=== PATIENT | male | born 1950 | race African-American/Black ===

== ENCOUNTER 2018-01-08 06:22 | Inpatient (IN) ==
[~2018-01-08 06:22] MED LIST: VANCOMYCIN INJ 1,000 MG in SODIUM CHLORIDE 0.9% 250 ML IV ONE; ceFAZolin 1,000 MG in SYRINGE 1 EACH IV ONE
[2018-01-08] MEDS ORDERED: DIAZEPAM 5 MG TABLET PO ONE (07:00)
[2018-01-08] MEDS ORDERED: ALBUTEROL 2.5 MG/3 ML NEB RESP TX ONE (07:00)
[2018-01-08] MEDS ORDERED: FAMOTIDINE 20 MG TABLET PO ONE (07:00)
[2018-01-08] MEDS ORDERED: IPRATROPIUM 500 MCG/2.5 ML NEB RESP TX ONE (07:00)
[2018-01-08] MEDS ORDERED: TRANEXAMIC ACID 1,000 MG/10 ML VIAL IV ONE (08:23)
[2018-01-08] MEDS ORDERED: LACTATED RINGERS 1,000 ML IV SCH (08:30)
[2018-01-08] MEDS ORDERED: ceFAZolin 1,000 MG VIAL ONE (08:38)
[2018-01-08] MEDS ORDERED: VANCOMYCIN 1,000 MG VIAL ONE (08:38)
[2018-01-08] MEDS ORDERED: BACITRACIN OINT 0.9 GM PACK TOP ONE (08:52)
[2018-01-08] MEDS ORDERED: DIAZEPAM 5 MG TABLET ONE (09:41)
[2018-01-08] MEDS ORDERED: FAMOTIDINE 20 MG TABLET ONE (09:41)
[2018-01-08] MEDS ORDERED: ROPIVACAINE 0.5% 30 ML VIAL ONE (10:26)
[2018-01-08] MEDS ORDERED: diphenhydrAMINE CAP 25 MG CAPSULE PO PRN (11:50)
[2018-01-08] MEDS ORDERED: ONDANSETRON 4 MG/2 ML VIAL IV PRN (11:50)
[2018-01-08] MEDS ORDERED: MORPHINE 2 MG/1 ML SYRINGE IV PRN ×2 (11:50)
[2018-01-08] MEDS ORDERED: oxyCODONE IR 5 MG TABLET PO PRN ×2 (11:50)
[2018-01-08] MEDS ORDERED: ZALEPLON 5 MG CAPSULE PO PRN (11:50)
[2018-01-08] MEDS ORDERED: MAGNESIUM HYDROXIDE SUSP 30 ML UDCUP PO PRN (11:50)
[2018-01-08] MEDS ORDERED: BENZONATATE 100 MG CAPSULE PO SCH (12:00)
[2018-01-08] MEDS ORDERED: fentaNYL 100 MCG/2 ML VIAL ONE (12:26)
[2018-01-08] MEDS ORDERED: ONDANSETRON 4 MG/2 ML VIAL ONE (12:27)
[2018-01-08] MEDS ORDERED: PROPOFOL 200 MG/20 ML VIAL IV ONE (12:27)
[2018-01-08] MEDS ORDERED: SEVOFLURANE 1 UNIT/15 MINUTE INH ONE (12:27)
[2018-01-08] MEDS ORDERED: GLYCOPYRROLATE 0.4 MG/2 ML VIAL ONE (12:28)
[2018-01-08] MEDS ORDERED: ACETAMINOPHEN 1,000 MG/100 ML VIAL IV ONE (12:28)
[2018-01-08] MEDS ORDERED: PHENYLEPHRINE 1 MG/10 ML SYRINGE IV ONE (12:28)
[2018-01-08] MEDS ORDERED: NEOSTIGMINE 10 MG/10 ML VIAL ONE (12:28)
[2018-01-08] MEDS ORDERED: ROCURONIUM 100 MG/10 ML VIAL IV ONE (12:28)
[2018-01-08] MEDS: LACTATED RINGERS 1,000 ML IV SCH (12:32)
[2018-01-08] MEDS: ceFAZolin 1,000 MG in SYRINGE 1 EACH IV SCH ×2 (16:19→23:20)
[2018-01-08] MEDS: KETOROLAC 30 MG/1 ML VIAL IV SCH ×2 (16:23→21:42)
[2018-01-08] MEDS: ACETAMINOPHEN 500 MG TABLET PO SCH ×2 (16:24→21:41)
[2018-01-08] MEDS: GABAPENTIN 300 MG CAPSULE PO SCH (21:41)
[2018-01-08] MEDS: DOCUSATE SODIUM 100 MG CAPSULE PO SCH (21:41)
[2018-01-09] MEDS: ACETAMINOPHEN 500 MG TABLET PO SCH ×2 (03:10→10:18)
[2018-01-09] MEDS: KETOROLAC 30 MG/1 ML VIAL IV SCH ×2 (03:10→10:21)
[2018-01-09] MEDS: LACTATED RINGERS 1,000 ML IV SCH (03:10)
[2018-01-09 04:53] LABS: Basophils # 0.1 10*3/uL (0.0-0.2); Basophils % 0.7 % (0.0-0.8); Eosinophils # 0.9 10*3/uL (0.0-0.87); Eosinophils % 13.2 % (0.00-10.9); Hematocrit 30.9 VOL% (42.0-52.0); Immature Granulocytes % 0.1 %; Immature Granulocytes Absolute 0.01 #; Lymphocytes # 1.3 10*3/uL (1.4-4.0); Lymphocytes % 18.5 % (21.2-54.2); Mean Corpuscular HGB Conc 32.4 GM/DL (32-36); Mean Corpuscular Hemoglobin 28 PG (27-34); Mean Corpuscular Volume 87.3 FL (87-102); Mean Platelet Volume 10.2 FL (9.6-12.0); Monocytes # 0.9 10*3/uL (0.11-0.8); Monocytes % 13.4 % (1.7-12.7); Neutrophils # 3.8 10*3/uL (1.4-7.4); Neutrophils % 54.1 % (38.7-73.9); Platelet Count 176 T/CUMM (130-400); Red Blood Count 3.54 MC/CUMM (3.8-5.5); Red Cell Distribution Width 13.4 % (9.3-17.3)
[2018-01-09 05:19] LABS: Eosinophils 16 % (0-10); Lymphocytes 24 % (20-55); Platelet Estimate Normal; Segmented Neutrophils 48 % (50-85); Total Cells Counted 100
[2018-01-09 05:20] LABS: Giant Platelets Few; Hypochromasia 1+; Ovalocytes Slight
[2018-01-09 05:22] LABS: Calcium 8.2 MG/DL (8.5-10.1); Osmolality,Calculated 279.3 MOS/KG (273-304); Potassium 3.3 MMOL/L (3.5-5.1)
[2018-01-09] MEDS: FONDAPARINUX 2.5 MG/0.5 ML SYRINGE SUBCUT SCH (05:55)
[2018-01-09] MEDS ORDERED: KETOROLAC 30 MG/1 ML VIAL ONE (10:15)
[2018-01-09] MEDS: POTASSIUM CHLORIDE 20 MEQ TABLET PO SCH ×2 (10:17→21:34)
[2018-01-09] MEDS: amLODIPine 5 MG TABLET PO SCH (10:18)
[2018-01-09] MEDS: DOCUSATE SODIUM 100 MG CAPSULE PO SCH ×2 (10:18→21:34)
[2018-01-09] MEDS: oxyCODONE/ACETAMINOPHEN 5-325 MG TABLET PO PRN ×3 (15:24→21:34)
[2018-01-09] MEDS: CELECOXIB 200 MG CAPSULE PO SCH (17:17)
[2018-01-09] MEDS: GABAPENTIN 300 MG CAPSULE PO SCH (21:34)
[2018-01-10 05:15] LABS: Basophils % 0.4 % (0.0-0.8); Eosinophils # 0.8 10*3/uL (0.0-0.87); Eosinophils % 11.9 % (0.00-10.9); Hematocrit 28.2 VOL% (42.0-52.0); Hemoglobin 9.1 GM/DL (14.0-18.0); Immature Granulocytes % 0.3 %; Immature Granulocytes Absolute 0.02 #; Lymphocytes # 1.2 10*3/uL (1.4-4.0); Lymphocytes % 17.2 % (21.2-54.2); Mean Corpuscular HGB Conc 32.3 GM/DL (32-36); Mean Corpuscular Hemoglobin 29 PG (27-34); Mean Corpuscular Volume 88.7 FL (87-102); Mean Platelet Volume 10.6 FL (9.6-12.0); Monocytes # 0.6 10*3/uL (0.11-0.8); Monocytes % 8.7 % (1.7-12.7); Neutrophils # 4.2 10*3/uL (1.4-7.4); Neutrophils % 61.5 % (38.7-73.9); Platelet Count 164 T/CUMM (130-400); Red Blood Count 3.18 MC/CUMM (3.8-5.5); Red Cell Distribution Width 13.5 % (9.3-17.3); White Blood Count 6.8 T/CUMM (4-12)
[2018-01-10 05:38] LABS: Eosinophils 11 % (0-10); Giant Platelets Few; Hypochromasia 1+; Lymphocytes 22 % (20-55); Ovalocytes Slight; Platelet Estimate Normal; Segmented Neutrophils 59 % (50-85); Total Cells Counted 100
[2018-01-10] MEDS: FONDAPARINUX 2.5 MG/0.5 ML SYRINGE SUBCUT SCH (06:05)
[2018-01-10] MEDS: CELECOXIB 200 MG CAPSULE PO SCH (09:21)
[2018-01-10] MEDS: oxyCODONE/ACETAMINOPHEN 5-325 MG TABLET PO PRN ×2 (09:21→16:40)
[2018-01-10] MEDS: DOCUSATE SODIUM 100 MG CAPSULE PO SCH ×2 (09:21→21:05)
[2018-01-10] MEDS: amLODIPine 5 MG TABLET PO SCH (09:21)
[2018-01-10] MEDS: POTASSIUM CHLORIDE 20 MEQ TABLET PO SCH (09:22)
[2018-01-10] MEDS: GABAPENTIN 300 MG CAPSULE PO SCH (21:05)
[2018-01-11] MEDS: FONDAPARINUX 2.5 MG/0.5 ML SYRINGE SUBCUT SCH (06:30)
[2018-01-11] MEDS: oxyCODONE/ACETAMINOPHEN 5-325 MG TABLET PO PRN (10:32)
[2018-01-11] MEDS: DOCUSATE SODIUM 100 MG CAPSULE PO SCH (10:32)
[2018-01-11] MEDS: amLODIPine 5 MG TABLET PO SCH (10:32)
[2018-01-11] MEDS: CELECOXIB 200 MG CAPSULE PO SCH (10:33)
[2018-01-11 11:32] VITALS: BP 153/72
[2018-01-11] MEDS ORDERED: MORPHINE 4 MG/1 ML VIAL IV PRN ×2 (11:56)
== END 2018-01-11 15:15 | disposition swing bed (61) | DRG 470 ==
LOC: N.OR 06:22 → N.SDSINP 06:26 → N.3E 13:17
PROVIDERS: ADMIT Orthopaedic Surgery; ATTEND Orthopaedic Surgery

== ENCOUNTER 2018-08-13 05:19 | Inpatient (IN) ==
[2018-08-13] MEDS ORDERED: methylPREDNISolone SOD SUC 125 MG/2 ML VIAL IV STA (06:11)
[2018-08-13] MEDS ORDERED: ALBUTEROL NEB SOLN 5 MG/ML 20 ML/BOTTLE CONT NEB STA (06:11)
[2018-08-13 06:24] LABS: Eosinophils % 34.2 % (0.00-10.9)
[2018-08-13 06:28] LABS: Basophils # 0.1 10*3/uL (0.0-0.2); Eosinophils # 2.6 10*3/uL (0.0-0.87); Hematocrit 36.8 VOL% (42.0-52.0); Hemoglobin 11.8 GM/DL (14.0-18.0); Immature Granulocytes % 0.3 %; Immature Granulocytes Absolute 0.02 #; Lymphocytes # 1.4 10*3/uL (1.4-4.0); Lymphocytes % 17.8 % (21.2-54.2); Mean Corpuscular HGB Conc 32.1 GM/DL (32-36); Mean Corpuscular Hemoglobin 29 PG (27-34); Mean Corpuscular Volume 89.5 FL (87-102); Mean Platelet Volume 10.5 FL (9.6-12.0); Monocytes # 0.6 10*3/uL (0.11-0.8); Monocytes % 7.5 % (1.7-12.7); Neutrophils % 39.2 % (38.7-73.9); Platelet Count 237 T/CUMM (130-400); Red Blood Count 4.11 MC/CUMM (3.8-5.5); Red Cell Distribution Width 12.4 % (9.3-17.3); White Blood Count 7.7 T/CUMM (4-12)
[2018-08-13 06:33] LABS: PT Patient Result 10.9 SECS; Partial Thromboplastin Time 25.9 SECS (0-40)
[2018-08-13 06:40] LABS: Eosinophils 24 % (0-10); Lymphocytes 20 % (20-55); Platelet Estimate Adequate; Segmented Neutrophils 47 % (50-85); Total Cells Counted 100
[2018-08-13 06:41] LABS: Hypochromasia 1+; Ovalocytes Slight
[2018-08-13 06:46] LABS: Bilirubin,Total 0.6 MG/DL (0.2-1.0); Calcium 9.1 MG/DL (8.5-10.1); Osmolality,Calculated 276.5 MOS/KG (273-304); Potassium 3.9 MMOL/L (3.5-5.1); Total Protein 7.7 G/DL (6.4-8.3)
[2018-08-13] MEDS ORDERED: LEVOFLOXACIN INJ 500 MG in PREMIX 1 EACH IV STA (06:46)
[2018-08-13] MEDS ORDERED: ACETAMINOPHEN 325 MG TABLET PO PRN (08:20)
[2018-08-13] MEDS ORDERED: ONDANSETRON 4 MG/2 ML VIAL IV PRN (08:20)
[2018-08-13 10:50] LABS: Apearance,Urine Slightly Hazy (Clear); Bacteria,Urine Occasional /HPF (Few); Bilirubin,Urine Negative (Negative); Blood, Urine Negative (Negative); Glucose,Urine (UA) >=500 mg/dL (Negative); Ketones,Urine 20 mg/dL (Negative); Mucus,Urine Occasional /LPF (Occasional); Nitrite,Urine Negative (Negative); Protein,Urine Negative; RBC,Urine 9 /HPF (0-4); Squamous Epithelial Cell,Urine Occasional /HPF (0-10); Urine Color Yellow (Yellow); Urine Urobilinogen < 2.0 EU/DL (0.2-1.0); WBC,Urine 124 /HPF (0-6)
[2018-08-13 10:55] LABS: Barbiturates Screen,Urine Negative (Negative); Benzodiazepines Screen,Urine Negative (Negative); Cannabinoid Screen,Urine Negative (Negative); Opiate Screen,Urine Negative (Negative); Phencyclidine Screen,Urine Negative (Negative)
[2018-08-13] MEDS ORDERED: THIAMINE INJ 100 MG, FOLIC ACID INJ 1 MG, MULTIVITAMIN INJ 10 ML in SODIUM CHLORIDE 0.9... IV SCH (11:00)
[2018-08-13] MEDS ORDERED: BENZONATATE 100 MG CAPSULE PO PRN (13:39)
[2018-08-13] MEDS ORDERED: ALBUTEROL 2.5 MG/3 ML NEB RESP TX PRN (13:39)
[2018-08-13] MEDS ORDERED: chlordiazePOXIDE 10 MG CAPSULE PO PRN (13:46)
[2018-08-13] MEDS: ALBUTEROL/IPRATROPIUM 3 ML NEB RESP TX SCH ×2 (13:47→19:28)
[2018-08-13] MEDS ORDERED: SODIUM CHLORIDE 0.9% 1,000 ML IV SCH (14:00)
[2018-08-13] MEDS ORDERED: IPRATROPIUM 500 MCG/2.5 ML NEB RESP TX SCH (15:00)
[2018-08-13] MEDS: cefTRIAXone 1,000 MG in SYRINGE 1 EACH IV SCH (15:02)
[2018-08-13] MEDS ORDERED: IPRATROPIUM/ALBUTEROL INHALER INH SCH (17:00)
[2018-08-13] MEDS: oxyCODONE/ACETAMINOPHEN 5-325 MG TABLET PO SCH (20:42)
[2018-08-13] MEDS: GABAPENTIN 300 MG CAPSULE PO SCH (20:43)
[2018-08-13] MEDS: methylPREDNISolone SOD SUC 40 MG/1 ML VIAL IV SCH (20:43)
[2018-08-14] MEDS ORDERED: 1: SODIUM CHLORIDE 0.9% 1,000 ML 2: THIAMINE INJ 100 MG, FOLIC ACID INJ 1 MG, MULTIVITA IV SCH (00:18)
[2018-08-14] MEDS: ALBUTEROL/IPRATROPIUM 3 ML NEB RESP TX SCH ×4 (01:18→19:50)
[2018-08-14 05:53] LABS: Hematocrit 34.9 VOL% (42.0-52.0); Hemoglobin 11.2 GM/DL (14.0-18.0); Immature Granulocytes % 0.5 %; Immature Granulocytes Absolute 0.04 #; Lymphocytes % 11.6 % (21.2-54.2); Mean Corpuscular HGB Conc 32.1 GM/DL (32-36); Mean Corpuscular Hemoglobin 29 PG (27-34); Mean Corpuscular Volume 89.5 FL (87-102); Mean Platelet Volume 10.7 FL (9.6-12.0); Monocytes # 0.3 10*3/uL (0.11-0.8); Monocytes % 3.8 % (1.7-12.7); Neutrophils # 7.2 10*3/uL (1.4-7.4); Neutrophils % 84.1 % (38.7-73.9); Platelet Count 236 T/CUMM (130-400); Red Cell Distribution Width 12.1 % (9.3-17.3); White Blood Count 8.6 T/CUMM (4-12)
[2018-08-14 07:02] LABS: Calcium 8.8 MG/DL (8.5-10.1); Osmolality,Calculated 280.4 MOS/KG (273-304); Potassium 4.2 MMOL/L (3.5-5.1)
[2018-08-14] MEDS ORDERED: LEVOFLOXACIN INJ 500 MG in PREMIX 1 EACH IV SCH (08:30)
[2018-08-14] MEDS: methylPREDNISolone SOD SUC 40 MG/1 ML VIAL IV SCH ×2 (08:32→21:58)
[2018-08-14] MEDS: amLODIPine 5 MG TABLET PO SCH (08:34)
[2018-08-14] MEDS: GABAPENTIN 300 MG CAPSULE PO SCH ×2 (08:34→21:58)
[2018-08-14] MEDS: ASPIRIN EC 81 MG TABLET PO SCH (08:34)
[2018-08-14] MEDS: oxyCODONE/ACETAMINOPHEN 5-325 MG TABLET PO SCH ×2 (08:34→21:58)
[2018-08-14] MEDS: cefTRIAXone 1,000 MG in SYRINGE 1 EACH IV SCH (08:34)
[2018-08-14] MEDS: MULTIVITAMIN (CENTRUM) TABLET PO SCH (11:37)
[2018-08-14] MEDS: THIAMINE 100 MG TABLET PO SCH (11:37)
[2018-08-14] MEDS: FOLIC ACID 1 MG TABLET PO SCH (11:37)
[2018-08-14] MEDS: SODIUM CHLORIDE 0.9% 1,000 ML IV SCH ×2 (11:37→22:01)
[2018-08-15] MEDS: ALBUTEROL/IPRATROPIUM 3 ML NEB RESP TX SCH ×2 (00:53→08:18)
[2018-08-15 07:34] VITALS: BP 141/73
[2018-08-15] MEDS: cefTRIAXone 1,000 MG in SYRINGE 1 EACH IV SCH (09:39)
[2018-08-15] MEDS: oxyCODONE/ACETAMINOPHEN 5-325 MG TABLET PO SCH (09:40)
[2018-08-15] MEDS: methylPREDNISolone SOD SUC 40 MG/1 ML VIAL IV SCH (09:40)
[2018-08-15] MEDS: GABAPENTIN 300 MG CAPSULE PO SCH (09:41)
[2018-08-15] MEDS: FOLIC ACID 1 MG TABLET PO SCH (09:41)
[2018-08-15] MEDS: amLODIPine 5 MG TABLET PO SCH (09:42)
[2018-08-15] MEDS: MULTIVITAMIN (CENTRUM) TABLET PO SCH (09:42)
[2018-08-15] MEDS: ASPIRIN EC 81 MG TABLET PO SCH (09:42)
[2018-08-15] MEDS: THIAMINE 100 MG TABLET PO SCH (09:44)
[2018-08-15] MEDS ORDERED: INFLUENZA VIRUS VACCINE 0.5 ML SYRINGE IM ONE (11:00)
== END 2018-08-15 11:06 | disposition home health service (06) | DRG 191 ==
LOC: EDUNIT# → EDBD → N.ED 05:19 → N.EDINP 08:20 → N.2E 09:38
PROVIDERS: ADMIT Hospitalist; ATTEND Hospitalist

== ENCOUNTER 2019-02-08 02:16 | Inpatient (IN) ==
[2019-02-08] MEDS ORDERED: ALBUTEROL/IPRATROPIUM 3 ML NEB RESP TX STA (02:32)
[2019-02-08] MEDS ORDERED: methylPREDNISolone SOD SUC 125 MG/2 ML VIAL IV STA (02:32)
[2019-02-08 02:52] LABS: Basophils # 0.1 10*3/uL (0.0-0.2); Basophils % 0.8 % (0.0-0.8); Eosinophils # 2.4 10*3/uL (0.0-0.87); Eosinophils % 33.4 % (0.00-10.9); Hematocrit 37.1 VOL% (42.0-52.0); Hemoglobin 11.7 GM/DL (14.0-18.0); Immature Granulocytes % 0.3 %; Immature Granulocytes Absolute 0.02 #; Lymphocytes # 1.2 10*3/uL (1.4-4.0); Lymphocytes % 17.4 % (21.2-54.2); Mean Corpuscular HGB Conc 31.5 GM/DL (32-36); Mean Corpuscular Volume 87.9 FL (87-102); Mean Platelet Volume 10.5 FL (9.6-12.0); Neutrophils % 41.1 % (38.7-73.9); Platelet Count 209 T/CUMM (130-400); Red Blood Count 4.22 MC/CUMM (3.8-5.5); Red Cell Distribution Width 12.7 % (9.3-17.3); White Blood Count 7.1 T/CUMM (4-12)
[2019-02-08 03:15] LABS: Eosinophils 33 % (0-10); Lymphocytes 24 % (20-55); Segmented Neutrophils 38 % (50-85); Total Cells Counted 100
[2019-02-08 03:19] LABS: Albumin 3.9 G/DL (3.4-5.0); Anisocytosis Slight; Bilirubin,Total 0.4 MG/DL (0.2-1.0); Calcium 8.9 MG/DL (8.5-10.1); Osmolality,Calculated 275.5 MOS/KG (273-304); Total Protein 7.2 G/DL (6.4-8.3)
[2019-02-08 03:23] LABS: Microcytosis Slight
[2019-02-08 03:28] LABS: Platelet Estimate Normal
[2019-02-08] MEDS ORDERED: ONDANSETRON 4 MG/2 ML VIAL IV PRN (05:39)
[2019-02-08] MEDS: SODIUM CHLOR 0.9% KCL 40 MEQ 40 MEQ/1,000 ML BAG IV SCH ×2 (10:20→21:01)
[2019-02-08] MEDS: ENOXAPARIN 40 MG/0.4 ML SYRINGE SUBCUT SCH (10:21)
[2019-02-08] MEDS: ASPIRIN EC 81 MG TABLET PO SCH (10:21)
[2019-02-08] MEDS: methylPREDNISolone SOD SUC 40 MG/1 ML VIAL IV SCH ×3 (10:21→21:01)
[2019-02-08] MEDS: amLODIPine 5 MG TABLET PO SCH (10:21)
[2019-02-08] MEDS: PANTOPRAZOLE 40 MG TABLET PO SCH (10:21)
[2019-02-08] MEDS: FLUTICASONE/SALMETEROL 100-50 DISKUS 14 DOSE INH SCH ×2 (10:22→21:01)
[2019-02-08] MEDS: ACETAMINOPHEN 325 MG TABLET PO PRN (12:29)
[2019-02-08] MEDS: POTASSIUM CHLORIDE 20 MEQ TABLET PO PRN ×4 (13:47→21:00)
[2019-02-09] MEDS: methylPREDNISolone SOD SUC 40 MG/1 ML VIAL IV SCH ×4 (03:52→21:24)
[2019-02-09] MEDS: ALBUTEROL/IPRATROPIUM 3 ML NEB RESP TX PRN ×3 (04:35→12:21)
[2019-02-09 05:18] LABS: Calcium 8.5 MG/DL (8.5-10.1); Osmolality,Calculated 278.5 MOS/KG (273-304)
[2019-02-09] MEDS: SODIUM CHLOR 0.9% KCL 40 MEQ 40 MEQ/1,000 ML BAG IV SCH (06:01)
[2019-02-09] MEDS: ENOXAPARIN 40 MG/0.4 ML SYRINGE SUBCUT SCH (09:41)
[2019-02-09] MEDS: PANTOPRAZOLE 40 MG TABLET PO SCH (09:41)
[2019-02-09] MEDS: FLUTICASONE/SALMETEROL 100-50 DISKUS 14 DOSE INH SCH ×2 (09:41→21:24)
[2019-02-09] MEDS: amLODIPine 5 MG TABLET PO SCH (09:41)
[2019-02-09] MEDS: ASPIRIN EC 81 MG TABLET PO SCH (09:41)
[2019-02-09] MEDS: DORNASE ALFA 2.5 MG/2.5 ML VIAL RESP TX SCH (19:41)
[2019-02-09] MEDS: ALBUTEROL/IPRATROPIUM 3 ML NEB RESP TX SCH (19:41)
[2019-02-09] MEDS: ACETAMINOPHEN 325 MG TABLET PO PRN (21:24)
[2019-02-10] MEDS: ALBUTEROL/IPRATROPIUM 3 ML NEB RESP TX SCH ×3 (00:40→07:42)
[2019-02-10] MEDS: methylPREDNISolone SOD SUC 40 MG/1 ML VIAL IV SCH ×2 (03:24→08:52)
[2019-02-10 06:07] LABS: Basophils % 0.1 % (0.0-0.8); Hematocrit 35.9 VOL% (42.0-52.0); Hemoglobin 11.4 GM/DL (14.0-18.0); Immature Granulocytes % 0.5 %; Immature Granulocytes Absolute 0.06 #; Lymphocytes # 0.7 10*3/uL (1.4-4.0); Lymphocytes % 5.8 % (21.2-54.2); Mean Corpuscular HGB Conc 31.8 GM/DL (32-36); Mean Corpuscular Volume 88.6 FL (87-102); Mean Platelet Volume 11.5 FL (9.6-12.0); Monocytes % 2.6 % (1.7-12.7); Platelet Count 214 T/CUMM (130-400); Red Blood Count 4.05 MC/CUMM (3.8-5.5); Red Cell Distribution Width 12.6 % (9.3-17.3); White Blood Count 11.3 T/CUMM (4-12)
[2019-02-10 06:29] LABS: Calcium 8.8 MG/DL (8.5-10.1); Osmolality,Calculated 279.8 MOS/KG (273-304)
[2019-02-10 07:27] LABS: Hypochromasia 1+; Lymphocytes 7 % (20-55); Microcytosis Slight; Ovalocytes Slight; Platelet Estimate Adequate; Segmented Neutrophils 92 % (50-85); Total Cells Counted 100
[2019-02-10] MEDS: DORNASE ALFA 2.5 MG/2.5 ML VIAL RESP TX SCH (07:48)
[2019-02-10] MEDS: FLUTICASONE/SALMETEROL 100-50 DISKUS 14 DOSE INH SCH (08:52)
[2019-02-10] MEDS: ASPIRIN EC 81 MG TABLET PO SCH (08:52)
[2019-02-10] MEDS: amLODIPine 5 MG TABLET PO SCH (08:52)
[2019-02-10] MEDS: ENOXAPARIN 40 MG/0.4 ML SYRINGE SUBCUT SCH (08:52)
[2019-02-10] MEDS: PANTOPRAZOLE 40 MG TABLET PO SCH (08:52)
[2019-02-10 11:52] VITALS: BP 122/75
== END 2019-02-10 13:08 | disposition home or self-care (01) ==
LOC: EDUNIT# → EDBD → N.ED 02:16 → N.EDINP 05:39 → N.2E 06:09
PROVIDERS: ADMIT Internal Medicine; ATTEND Internal Medicine

== ENCOUNTER 2019-04-13 13:30 | Inpatient (IN) ==
[2019-04-13 15:39] LABS: Basophils # 0.1 10*3/uL (0.0-0.2); Basophils % 0.7 % (0.0-0.8); Eosinophils # 2.5 10*3/uL (0.0-0.87); Eosinophils % 21.9 % (0.00-10.9); Hematocrit 42.6 VOL% (42.0-52.0); Hemoglobin 13.4 GM/DL (14.0-18.0); Immature Granulocytes % 0.4 %; Immature Granulocytes Absolute 0.05 #; Lymphocytes # 1.7 10*3/uL (1.4-4.0); Lymphocytes % 15.2 % (21.2-54.2); Mean Corpuscular HGB Conc 31.5 GM/DL (32-36); Mean Corpuscular Volume 87.8 FL (87-102); Mean Platelet Volume 9.9 FL (9.6-12.0); Monocytes % 8.2 % (1.7-12.7); Neutrophils % 53.6 % (38.7-73.9); Platelet Count 278 T/CUMM (130-400); Red Blood Count 4.85 MC/CUMM (3.8-5.5); Red Cell Distribution Width 13.2 % (9.3-17.3); White Blood Count 11.4 T/CUMM (4-12)
[2019-04-13] MEDS ORDERED: AZITHROMYCIN INJ 500 MG in SODIUM CHLORIDE 0.9% 250 ML IV STA (15:50)
[2019-04-13] MEDS ORDERED: methylPREDNISolone SOD SUC 125 MG/2 ML VIAL IV STA (15:50)
[2019-04-13] MEDS ORDERED: ONDANSETRON ODT 4 MG TABLET PO STA (15:50)
[2019-04-13 15:56] LABS: Albumin 4.8 G/DL (3.4-5.0); Bilirubin,Total 1.2 MG/DL (0.2-1.0); Calcium 10.2 MG/DL (8.5-10.1); Osmolality,Calculated 276.5 MOS/KG (273-304); Total Protein 8.2 G/DL (6.4-8.3)
[2019-04-13 15:58] LABS: Eosinophils 23 % (0-10); Lymphocytes 21 % (20-55); Platelet Estimate Adequate; Segmented Neutrophils 49 % (50-85); Total Cells Counted 100
[2019-04-13] MEDS ORDERED: ALBUTEROL 2.5 MG/3 ML NEB RESP TX SCH (16:00)
[2019-04-13 16:10] LABS: INR 0.9; PT Patient Result 9.9 SECS; Partial Thromboplastin Time 24.3 SECS (0-40)
[2019-04-13 16:16] LABS: Troponin I < 0.015 NG/ML (0.00-0.045)
[2019-04-13] MEDS ORDERED: LORazepam 2 MG/1 ML VIAL IV STA (16:40)
[2019-04-13] MEDS ORDERED: LORazepam 2 MG/1 ML VIAL ONE (16:41)
[2019-04-13] MEDS ORDERED: ETOMIDATE 20 MG/10 ML VIAL IV ONE (17:21)
[2019-04-13] MEDS ORDERED: ROCURONIUM 100 MG/10 ML VIAL IV ONE ×2 (17:23→19:08)
[2019-04-13] MEDS: PROPOFOL 1,000 MG/100 ML BOTTLE IV SCH (17:40)
[2019-04-13 17:58] LABS: ABG Base Excess -1.5 MMOL/L (-2.5-2.5); ABG HCO3 23.2 MMOL/L (20-26); ABG Oxygen Saturation 97.8 % (95-100)
[2019-04-13 18:02] LABS: ABG PCO2 93.5 MM HG (35-48); ABG PH 7.142 (7.35-7.45)
[2019-04-13 18:13] LABS: Barbiturates Screen,Urine Negative (Negative); Benzodiazepines Screen,Urine Negative (Negative); Cannabinoid Screen,Urine Negative (Negative); Opiate Screen,Urine Negative (Negative); Phencyclidine Screen,Urine Negative (Negative)
[2019-04-13 18:14] LABS: Apearance,Urine Slightly Hazy (Clear); Bacteria,Urine Few /HPF (Few); Bilirubin,Urine Negative (Negative); Blood, Urine Moderate mg/dL (Negative); Glucose,Urine (UA) >=500 mg/dL (Negative); Ketones,Urine 5 mg/dL (Negative); Mucus,Urine Occasional /LPF (Occasional); Nitrite,Urine Negative (Negative); Protein,Urine 100 MG/DL; RBC,Urine 6 /HPF (0-4); Squamous Epithelial Cell,Urine Occasional /HPF (0-10); Urine Color Yellow (Yellow); Urine Specific Gravity 1.016 (1.001-1.035); Urine Urobilinogen < 2.0 EU/DL (0.2-1.0); WBC,Urine 14 /HPF (0-6)
[2019-04-13] MEDS ORDERED: ALBUTEROL 2.5 MG/3 ML NEB RESP TX PRN (18:17)
[2019-04-13] MEDS ORDERED: VECURONIUM 10 MG VIAL IV ONE (18:23)
[2019-04-13] MEDS ORDERED: SODIUM CHLORIDE 0.9% 1,000 ML IV SCH (18:30)
[2019-04-13] MEDS ORDERED: ETOMIDATE 20 MG/10 ML VIAL IV STA (19:08)
[2019-04-13] MEDS ORDERED: VECURONIUM 10 MG VIAL IV STA (19:09)
[2019-04-13] MEDS: ENOXAPARIN 40 MG/0.4 ML SYRINGE SUBCUT SCH (19:12)
[2019-04-13] MEDS: methylPREDNISolone SOD SUC 40 MG/1 ML VIAL IV SCH (19:15)
[2019-04-13] MEDS: cefTRIAXone 1,000 MG in SYRINGE 1 EACH IV SCH (19:15)
[2019-04-13] MEDS: ALBUTEROL/IPRATROPIUM 3 ML NEB RESP TX SCH (20:07)
[2019-04-13 21:11] LABS: ABG HCO3 22.8 MMOL/L (20-26); ABG Oxygen Saturation 99.9 % (95-100); ABG PCO2 53.2 MM HG (35-48); ABG PH 7.289 (7.35-7.45); ABG TCO2 22.7 MMOL/L (23-27); Allen Test Positive; Pt O2 Delivery Device Ventilator
[2019-04-13] MEDS: FAMOTIDINE 20 MG/2 ML VIAL IV SCH (21:51)
[2019-04-14] MEDS: ALBUTEROL/IPRATROPIUM 3 ML NEB RESP TX SCH ×4 (00:02→19:11)
[2019-04-14] MEDS: methylPREDNISolone SOD SUC 40 MG/1 ML VIAL IV SCH ×5 (00:36→23:30)
[2019-04-14] MEDS: PROPOFOL 1,000 MG/100 ML BOTTLE IV SCH ×3 (01:39→20:24)
[2019-04-14] MEDS: SODIUM CHLORIDE 0.9% 1,000 ML IV SCH ×2 (03:35→23:31)
[2019-04-14 04:08] LABS: ABG Base Excess 0.3 MMOL/L (-2.5-2.5); ABG HCO3 23.6 MMOL/L (20-26); ABG Oxygen Saturation 99.3 % (95-100); ABG PO2 255.5 MM HG (80-95); ABG TCO2 24.7 MMOL/L (23-27); Allen Test Positive; Pt O2 Delivery Device Ventilator
[2019-04-14 07:00] LABS: Eosinophils % 0.2 % (0.00-10.9); Hematocrit 35.9 VOL% (42.0-52.0); Hemoglobin 11.5 GM/DL (14.0-18.0); Immature Granulocytes % 0.3 %; Immature Granulocytes Absolute 0.02 #; Lymphocytes # 0.9 10*3/uL (1.4-4.0); Lymphocytes % 15.2 % (21.2-54.2); Mean Corpuscular Volume 87.3 FL (87-102); Mean Platelet Volume 10.4 FL (9.6-12.0); Monocytes % 3.4 % (1.7-12.7); Neutrophils % 80.9 % (38.7-73.9); Platelet Count 230 T/CUMM (130-400); Red Blood Count 4.11 MC/CUMM (3.8-5.5); Red Cell Distribution Width 13.1 % (9.3-17.3); White Blood Count 6.1 T/CUMM (4-12)
[2019-04-14 07:39] LABS: Albumin 3.7 G/DL (3.4-5.0); Bilirubin,Total 0.9 MG/DL (0.2-1.0); Calcium 9.1 MG/DL (8.5-10.1); Osmolality,Calculated 282.5 MOS/KG (273-304)
[2019-04-14] MEDS: FAMOTIDINE 20 MG/2 ML VIAL IV SCH ×2 (09:18→20:18)
[2019-04-14] MEDS: cefTRIAXone 1,000 MG in SYRINGE 1 EACH IV SCH (17:32)
[2019-04-14] MEDS: ENOXAPARIN 40 MG/0.4 ML SYRINGE SUBCUT SCH (17:35)
[2019-04-15] MEDS: ALBUTEROL/IPRATROPIUM 3 ML NEB RESP TX SCH ×4 (01:02→18:50)
[2019-04-15 03:16] LABS: Basophils % 0.1 % (0.0-0.8); Hematocrit 36.2 VOL% (42.0-52.0); Hemoglobin 11.6 GM/DL (14.0-18.0); Immature Granulocytes % 0.3 %; Immature Granulocytes Absolute 0.03 #; Lymphocytes # 0.8 10*3/uL (1.4-4.0); Lymphocytes % 7.1 % (21.2-54.2); Mean Corpuscular Volume 86.6 FL (87-102); Mean Platelet Volume 11.3 FL (9.6-12.0); Monocytes % 5.1 % (1.7-12.7); Neutrophils % 87.4 % (38.7-73.9); Platelet Count 212 T/CUMM (130-400); Red Blood Count 4.18 MC/CUMM (3.8-5.5); Red Cell Distribution Width 13.2 % (9.3-17.3); White Blood Count 11.6 T/CUMM (4-12)
[2019-04-15 03:49] LABS: Albumin 3.5 G/DL (3.4-5.0); Bilirubin,Total 0.9 MG/DL (0.2-1.0); Calcium 8.9 MG/DL (8.5-10.1); Osmolality,Calculated 285.3 MOS/KG (273-304)
[2019-04-15 04:03] LABS: ABG Base Excess 3.4 MMOL/L (-2.5-2.5); ABG HCO3 27.5 MMOL/L (20-26); ABG Oxygen Saturation 99.9 % (95-100); ABG PCO2 33.6 MM HG (35-48); ABG TCO2 23.2 MMOL/L (23-27); Allen Test Positive; Pt O2 Delivery Device Ventilator
[2019-04-15] MEDS: methylPREDNISolone SOD SUC 40 MG/1 ML VIAL IV SCH ×3 (05:37→21:10)
[2019-04-15] MEDS: FAMOTIDINE 20 MG/2 ML VIAL IV SCH ×2 (10:09→20:54)
[2019-04-15] MEDS: PROPOFOL 1,000 MG/100 ML BOTTLE IV SCH ×3 (10:16→20:53)
[2019-04-15] MEDS: cefTRIAXone 1,000 MG in SYRINGE 1 EACH IV SCH (18:46)
[2019-04-15] MEDS: ENOXAPARIN 40 MG/0.4 ML SYRINGE SUBCUT SCH (18:46)
[2019-04-15] MEDS: SODIUM CHLORIDE 0.9% 1,000 ML IV SCH ×2 (19:21→20:54)
[2019-04-16] MEDS: ALBUTEROL/IPRATROPIUM 3 ML NEB RESP TX SCH ×4 (00:50→18:50)
[2019-04-16] MEDS: methylPREDNISolone SOD SUC 40 MG/1 ML VIAL IV SCH ×3 (02:33→20:33)
[2019-04-16 04:00] LABS: Basophils % 0.1 % (0.0-0.8); Hematocrit 42.8 VOL% (42.0-52.0); Hemoglobin 13.4 GM/DL (14.0-18.0); Immature Granulocytes % 0.4 %; Immature Granulocytes Absolute 0.05 #; Lymphocytes % 7.5 % (21.2-54.2); Mean Corpuscular HGB Conc 31.3 GM/DL (32-36); Mean Platelet Volume 11.2 FL (9.6-12.0); Monocytes % 4.9 % (1.7-12.7); Neutrophils % 87.1 % (38.7-73.9); Platelet Count 192 T/CUMM (130-400); Red Blood Count 4.81 MC/CUMM (3.8-5.5); Red Cell Distribution Width 13.4 % (9.3-17.3); White Blood Count 13.9 T/CUMM (4-12)
[2019-04-16 04:12] LABS: ABG Base Excess 1.3 MMOL/L (-2.5-2.5); ABG HCO3 25.6 MMOL/L (20-26); ABG Oxygen Saturation 99.5 % (95-100); ABG PCO2 35.9 MM HG (35-48); ABG PH 7.451 (7.35-7.45); ABG TCO2 21.9 MMOL/L (23-27); Allen Test Positive; Pt O2 Delivery Device Ventilator
[2019-04-16 04:24] LABS: Albumin 3.3 G/DL (3.4-5.0); Bilirubin,Total 0.9 MG/DL (0.2-1.0); Calcium 9.1 MG/DL (8.5-10.1); Total Protein 6.7 G/DL (6.4-8.3)
[2019-04-16] MEDS: PROPOFOL 1,000 MG/100 ML BOTTLE IV SCH (07:00)
[2019-04-16] MEDS: FAMOTIDINE 20 MG/2 ML VIAL IV SCH ×2 (09:11→20:33)
[2019-04-16] MEDS ORDERED: cloNIDine 0.1 MG TABLET PO ONE (12:35)
[2019-04-16] MEDS: amLODIPine 5 MG TABLET PO SCH (14:27)
[2019-04-16] MEDS: SODIUM CHLORIDE 0.9% 1,000 ML IV SCH (17:32)
[2019-04-16] MEDS: ENOXAPARIN 40 MG/0.4 ML SYRINGE SUBCUT SCH (18:13)
[2019-04-16] MEDS: cefTRIAXone 1,000 MG in SYRINGE 1 EACH IV SCH (18:14)
[2019-04-17] MEDS: ALBUTEROL/IPRATROPIUM 3 ML NEB RESP TX SCH ×5 (00:22→19:32)
[2019-04-17 06:05] LABS: Basophils % 0.1 % (0.0-0.8); Hematocrit 39.9 VOL% (42.0-52.0); Hemoglobin 12.9 GM/DL (14.0-18.0); Immature Granulocytes % 0.5 %; Immature Granulocytes Absolute 0.05 #; Mean Corpuscular HGB Conc 32.3 GM/DL (32-36); Mean Corpuscular Volume 87.7 FL (87-102); Mean Platelet Volume 11.4 FL (9.6-12.0); Monocytes % 6.2 % (1.7-12.7); Neutrophils % 83.2 % (38.7-73.9); Platelet Count 191 T/CUMM (130-400); Red Blood Count 4.55 MC/CUMM (3.8-5.5); White Blood Count 10.3 T/CUMM (4-12)
[2019-04-17 06:53] LABS: Albumin 2.9 G/DL (3.4-5.0); Bilirubin,Total 0.6 MG/DL (0.2-1.0); Calcium 8.9 MG/DL (8.5-10.1); Osmolality,Calculated 282.4 MOS/KG (273-304); Total Protein 6.5 G/DL (6.4-8.3)
[2019-04-17] MEDS: methylPREDNISolone SOD SUC 40 MG/1 ML VIAL IV SCH ×2 (09:59→21:02)
[2019-04-17] MEDS: ASPIRIN EC 81 MG TABLET PO SCH (09:59)
[2019-04-17] MEDS: amLODIPine 5 MG TABLET PO SCH (09:59)
[2019-04-17] MEDS: FAMOTIDINE 20 MG/2 ML VIAL IV SCH ×2 (09:59→21:00)
[2019-04-17] MEDS: SODIUM CHLORIDE 0.9% 1,000 ML IV SCH (13:11)
[2019-04-17] MEDS ORDERED: chlordiazePOXIDE 25 MG CAPSULE PO PRN (15:32)
[2019-04-17] MEDS: cefTRIAXone 1,000 MG in SYRINGE 1 EACH IV SCH (18:17)
[2019-04-17] MEDS: ENOXAPARIN 40 MG/0.4 ML SYRINGE SUBCUT SCH (18:17)
[2019-04-18] MEDS: ALBUTEROL/IPRATROPIUM 3 ML NEB RESP TX SCH ×3 (01:09→13:35)
[2019-04-18] MEDS ORDERED: ACETAMINOPHEN 325 MG TABLET PO PRN (03:04)
[2019-04-18 04:40] LABS: Basophils % 0.1 % (0.0-0.8); Hemoglobin 11.3 GM/DL (14.0-18.0); Immature Granulocytes % 0.7 %; Immature Granulocytes Absolute 0.07 #; Lymphocytes # 0.7 10*3/uL (1.4-4.0); Lymphocytes % 6.8 % (21.2-54.2); Mean Corpuscular HGB Conc 31.4 GM/DL (32-36); Mean Corpuscular Volume 88.9 FL (87-102); Mean Platelet Volume 11.1 FL (9.6-12.0); Monocytes % 4.8 % (1.7-12.7); Neutrophils % 87.6 % (38.7-73.9); Platelet Count 221 T/CUMM (130-400); Red Blood Count 4.05 MC/CUMM (3.8-5.5); Red Cell Distribution Width 12.9 % (9.3-17.3); White Blood Count 9.7 T/CUMM (4-12)
[2019-04-18 05:03] LABS: Albumin 3.1 G/DL (3.4-5.0); Bilirubin,Total 0.8 MG/DL (0.2-1.0); Calcium 9.2 MG/DL (8.5-10.1); Osmolality,Calculated 290.1 MOS/KG (273-304)
[2019-04-18] MEDS: amLODIPine 5 MG TABLET PO SCH (08:51)
[2019-04-18] MEDS: ASPIRIN EC 81 MG TABLET PO SCH (08:51)
[2019-04-18] MEDS: FAMOTIDINE 20 MG/2 ML VIAL IV SCH (08:54)
[2019-04-18] MEDS: methylPREDNISolone SOD SUC 40 MG/1 ML VIAL IV SCH (08:56)
[2019-04-18] MEDS ORDERED: MULTIVITAMIN (CENTRUM) TABLET PO SCH (09:00)
[2019-04-18] MEDS ORDERED: FOLIC ACID 1 MG TABLET PO SCH (09:00)
[2019-04-18] MEDS ORDERED: THIAMINE 100 MG TABLET PO SCH (09:00)
[2019-04-18] MEDS: SODIUM CHLORIDE 0.9% 1,000 ML IV SCH (09:03)
[2019-04-18 11:46] VITALS: BP 143/72
== END 2019-04-18 16:46 | disposition home or self-care (01) | DRG 208 ==
LOC: N.ED 13:30 → N.EDINP 18:17 → SUATTDRO 18:17 → N.CC 19:14 → N.2E 04-16 21:13
PROVIDERS: ADMIT Internal Medicine Geriatric Medicine; ATTEND Internal Medicine

== ENCOUNTER 2019-11-06 07:46 | Observation (INO) ==
[2019-11-06] MEDS ORDERED: SODIUM CHLORIDE 0.9% 1,000 ML IV STA (07:58)
[2019-11-06] MEDS ORDERED: methylPREDNISolone SOD SUC 125 MG/2 ML VIAL IV STA (07:58)
[2019-11-06] MEDS ORDERED: ALBUTEROL 2.5 MG/3 ML NEB RESP TX SCH (08:00)
[2019-11-06 08:29] LABS: ABG HCO3 26.1 MMOL/L (20-26); ABG Oxygen Saturation 93.4 % (95-100); ABG PH 7.368 (7.35-7.45); ABG PO2 67.2 MM HG (80-95); ABG TCO2 24.7 MMOL/L (23-27)
[2019-11-06 08:30] LABS: Basophils # 0.1 10*3/uL (0.0-0.2); Basophils % 0.8 % (0.0-0.8); Eosinophils # 0.8 10*3/uL (0.0-0.87); Eosinophils % 11.3 % (0.00-10.9); Hematocrit 43.3 VOL% (42.0-52.0); Immature Granulocytes % 0.1 %; Immature Granulocytes Absolute 0.01 #; Lymphocytes # 1.1 10*3/uL (1.4-4.0); Lymphocytes % 15.1 % (21.2-54.2); Mean Corpuscular HGB Conc 32.3 GM/DL (32-36); Mean Corpuscular Volume 87.5 FL (87-102); Mean Platelet Volume 10.3 FL (9.6-12.0); Monocytes % 8.6 % (1.7-12.7); Neutrophils % 64.1 % (38.7-73.9); Platelet Count 210 T/CUMM (130-400); Red Blood Count 4.95 MC/CUMM (3.8-5.5); Red Cell Distribution Width 13.3 % (9.3-17.3); White Blood Count 7.2 T/CUMM (4-12)
[2019-11-06 08:39] LABS: INR 0.9; PT Patient Result 9.8 SECS (9.6-12.2); Partial Thromboplastin Time 24.3 SECS (20.8-36.0)
[2019-11-06 08:49] LABS: Eosinophils 12 % (0-10); Hypochromasia 1+; Lymphocytes 11 % (20-55); Ovalocytes Slight; Platelet Estimate Adequate; Segmented Neutrophils 67 % (50-85); Total Cells Counted 100
[2019-11-06 08:59] LABS: Albumin 4.1 G/DL (3.4-5.0); Bilirubin,Total 0.6 MG/DL (0.2-1.0); Calcium 9.1 MG/DL (8.5-10.1); Osmolality,Calculated 281.3 MOS/KG (273-304); Total Protein 7.8 G/DL (6.4-8.3)
[2019-11-06 10:16] LABS: Apearance,Urine CLEAR (Clear); Bilirubin,Urine Negative (Negative); Blood, Urine Negative (Negative); Glucose,Urine (UA) Negative (Negative); Ketones,Urine 5 mg/dL (Negative); Mucus,Urine Occasional /LPF (Occasional); Nitrite,Urine Negative (Negative); Protein,Urine Negative; RBC,Urine 4 /HPF (0-4); Squamous Epithelial Cell,Urine Occasional /HPF (0-10); Urine Color Yellow (Yellow); Urine Specific Gravity 1.015 (1.001-1.035); Urine Urobilinogen < 2.0 EU/DL (0.2-1.0); WBC,Urine 9 /HPF (0-6)
[2019-11-06] MEDS ORDERED: ONDANSETRON 4 MG/2 ML VIAL IV PRN (10:49)
[2019-11-06] MEDS ORDERED: ACETAMINOPHEN 325 MG TABLET PO PRN (10:49)
[2019-11-06] MEDS ORDERED: ALBUTEROL/IPRATROPIUM 3 ML NEB RESP TX PRN (10:53)
[2019-11-06] MEDS ORDERED: LORazepam 2 MG/1 ML VIAL IV PRN (10:53)
[2019-11-06] MEDS: THIAMINE 100 MG TABLET PO SCH (13:29)
[2019-11-06] MEDS: ENOXAPARIN 40 MG/0.4 ML SYRINGE SUBCUT SCH (13:29)
[2019-11-06] MEDS: methylPREDNISolone SOD SUC 40 MG/1 ML VIAL IV SCH ×2 (13:29→18:06)
[2019-11-06] MEDS: FOLIC ACID 1 MG TABLET PO SCH (13:29)
[2019-11-06] MEDS: MULTIVITAMIN (BEROCCA) TABLET PO SCH (13:29)
[2019-11-06] MEDS ORDERED: valACYclovir 500 MG TABLET PO SCH (21:00)
[2019-11-07] MEDS: methylPREDNISolone SOD SUC 40 MG/1 ML VIAL IV SCH ×4 (02:57→20:35)
[2019-11-07 04:59] LABS: Basophils % 0.2 % (0.0-0.8); Hematocrit 36.2 VOL% (42.0-52.0); Hemoglobin 11.7 GM/DL (14.0-18.0); Immature Granulocytes % 0.3 %; Immature Granulocytes Absolute 0.03 #; Lymphocytes % 10.9 % (21.2-54.2); Mean Corpuscular HGB Conc 32.3 GM/DL (32-36); Mean Corpuscular Volume 86.4 FL (87-102); Mean Platelet Volume 10.5 FL (9.6-12.0); Neutrophils % 84.6 % (38.7-73.9); Platelet Count 204 T/CUMM (130-400); Red Blood Count 4.19 MC/CUMM (3.8-5.5); Red Cell Distribution Width 13.1 % (9.3-17.3); White Blood Count 8.7 T/CUMM (4-12)
[2019-11-07 05:31] LABS: Calcium 8.7 MG/DL (8.5-10.1); Osmolality,Calculated 283.5 MOS/KG (273-304)
[2019-11-07] MEDS: FOLIC ACID 1 MG TABLET PO SCH (09:14)
[2019-11-07] MEDS: ASPIRIN EC 81 MG TABLET PO SCH (09:14)
[2019-11-07] MEDS: THEOPHYLLINE ER (24 HR) 300 MG CAPSULE PO SCH (09:14)
[2019-11-07] MEDS: LOSARTAN 50 MG TABLET PO SCH (09:15)
[2019-11-07] MEDS: PANTOPRAZOLE 40 MG TABLET PO SCH (09:15)
[2019-11-07] MEDS: THIAMINE 100 MG TABLET PO SCH (09:15)
[2019-11-07] MEDS: MULTIVITAMIN (BEROCCA) TABLET PO SCH (09:15)
[2019-11-07] MEDS: ENOXAPARIN 40 MG/0.4 ML SYRINGE SUBCUT SCH (11:45)
[2019-11-07] MEDS: BUDESONIDE/FORMOTEROL 80-4.5 INHALER 6.9 GM INH SCH (20:35)
[2019-11-08] MEDS: methylPREDNISolone SOD SUC 40 MG/1 ML VIAL IV SCH ×2 (02:02→03:53)
[2019-11-08] MEDS: THEOPHYLLINE ER (24 HR) 300 MG CAPSULE PO SCH (09:42)
[2019-11-08] MEDS: LOSARTAN 50 MG TABLET PO SCH (09:42)
[2019-11-08] MEDS: ASPIRIN EC 81 MG TABLET PO SCH (09:42)
[2019-11-08] MEDS: FOLIC ACID 1 MG TABLET PO SCH (09:43)
[2019-11-08] MEDS: MULTIVITAMIN (BEROCCA) TABLET PO SCH (09:43)
[2019-11-08] MEDS: PANTOPRAZOLE 40 MG TABLET PO SCH (09:43)
[2019-11-08] MEDS: THIAMINE 100 MG TABLET PO SCH (09:43)
[2019-11-08] MEDS: BUDESONIDE/FORMOTEROL 80-4.5 INHALER 6.9 GM INH SCH (09:46)
[2019-11-08] MEDS: ENOXAPARIN 40 MG/0.4 ML SYRINGE SUBCUT SCH (11:35)
[2019-11-08] MEDS ORDERED: amLODIPine 5 MG TABLET PO ONE (12:43)
[2019-11-08 13:34] VITALS: BP 116/63
== END 2019-11-08 13:40 | disposition home or self-care (01) ==
LOC: EDUNIT# → N.EDINP 07:46 → N.ED 07:46 → N.2W 12:36
PROVIDERS: ADMIT Internal Medicine; ATTEND Internal Medicine

== ENCOUNTER 2020-01-01 20:07 | Inpatient (IN) ==
[2020-01-01] MEDS ORDERED: FUROSEMIDE 100 MG/10 ML VIAL IV STA (20:53)
[2020-01-01] MEDS ORDERED: DILTIAZEM 50 MG/10 ML VIAL IV STA (20:53)
[2020-01-01] MEDS ORDERED: methylPREDNISolone SOD SUC 125 MG/2 ML VIAL IV STA (20:53)
[2020-01-01] MEDS ORDERED: MORPHINE 4 MG/1 ML VIAL IV STA (20:53)
[2020-01-01] MEDS ORDERED: PIPERACILLIN/TAZOBACTAM 3,375 MG in SODIUM CHLORIDE 0.9% 100 ML IV STA (20:53)
[2020-01-01] MEDS ORDERED: ONDANSETRON 4 MG/2 ML VIAL IV STA (20:53)
[2020-01-01] MEDS ORDERED: ALBUTEROL NEB SOLN 5 MG/ML 20 ML/BOTTLE CONT NEB SCH (21:00)
[2020-01-01] MEDS ORDERED: dilTIAZem Drip 125 MG/125 ML PREMIX IV SCH (21:00)
[2020-01-01 21:24] LABS: Albumin 4.2 G/DL (3.4-5.0); Calcium 9.2 MG/DL (8.5-10.1); Osmolality,Calculated 281.3 MOS/KG (273-304); Total Protein 7.3 G/DL (6.4-8.3)
[2020-01-01 21:29] LABS: ABG Base Excess 2.1 MMOL/L (-2.5-2.5); ABG HCO3 26.2 MMOL/L (20-26); ABG Oxygen Saturation 95.8 % (95-100); ABG PCO2 51.3 MM HG (35-48); ABG PH 7.355 (7.35-7.45); ABG PO2 80.9 MM HG (80-95); ABG TCO2 25.3 MMOL/L (23-27)
[2020-01-01 21:29] LABS: Basophils # 0.1 10*3/uL (0.0-0.2); Basophils % 0.9 % (0.0-0.8); Eosinophils # 1.6 10*3/uL (0.0-0.87); Eosinophils % 20.4 % (0.00-10.9); Hematocrit 40.5 VOL% (42.0-52.0); Hemoglobin 12.6 GM/DL (14.0-18.0); Immature Granulocytes % 0.3 %; Immature Granulocytes Absolute 0.02 #; Lymphocytes # 1.8 10*3/uL (1.4-4.0); Lymphocytes % 23.3 % (21.2-54.2); Mean Corpuscular HGB Conc 31.1 GM/DL (32-36); Mean Corpuscular Volume 88.6 FL (87-102); Mean Platelet Volume 10.7 FL (9.6-12.0); Monocytes % 8.8 % (1.7-12.7); Neutrophils % 46.3 % (38.7-73.9); Platelet Count 233 T/CUMM (130-400); Red Blood Count 4.57 MC/CUMM (3.8-5.5); Red Cell Distribution Width 13.9 % (9.3-17.3); White Blood Count 7.6 T/CUMM (4-12)
[2020-01-01 21:38] LABS: INR 0.9; PT Patient Result 10.1 SECS (9.6-12.2)
[2020-01-01] MEDS ORDERED: POTASSIUM CHLORIDE 20 MEQ TABLET PO STA (21:41)
[2020-01-01] MEDS ORDERED: PROMETHAZINE 25 MG/1 ML VIAL IM PRN (22:04)
[2020-01-01] MEDS ORDERED: DOCUSATE SODIUM 100 MG CAPSULE PO PRN (22:04)
[2020-01-01] MEDS ORDERED: ONDANSETRON 4 MG/2 ML VIAL IV PRN (22:04)
[2020-01-01] MEDS ORDERED: hydrALAZINE 20 MG/1 ML VIAL IV PRN (22:04)
[2020-01-01] MEDS ORDERED: ACETAMINOPHEN 325 MG TABLET PO PRN (22:04)
[2020-01-01] MEDS ORDERED: NICOTINE 21 MG/24 HR PATCH TRANSDERM PRN (22:04)
[2020-01-01] MEDS ORDERED: guaiFENesin/DM ER 600-30 MG TABLET PO PRN (22:04)
[2020-01-01] MEDS ORDERED: ALBUTEROL 2.5 MG/3 ML NEB RESP TX PRN (22:04)
[2020-01-01] MEDS ORDERED: ZALEPLON 5 MG CAPSULE PO PRN (22:04)
[2020-01-01] MEDS ORDERED: diphenhydrAMINE CAP 25 MG CAPSULE PO PRN (22:04)
[2020-01-01 22:08] LABS: Eosinophils 17 % (0-10); Lymphocytes 25 % (20-55); Platelet Estimate Normal; Segmented Neutrophils 53 % (50-85); Total Cells Counted 100
[2020-01-01] MEDS: BUDESONIDE 0.5 MG/2 ML NEB RESP TX SCH (22:55)
[2020-01-01 23:45] LABS: Apearance,Urine CLEAR (Clear); Bilirubin,Urine Negative (Negative); Blood, Urine Negative (Negative); Glucose,Urine (UA) Negative (Negative); Hyaline Casts,Urine 5 /LPF (0-3); Ketones,Urine 5 mg/dL (Negative); Mucus,Urine Occasional /LPF (Occasional); Nitrite,Urine Negative (Negative); Protein,Urine Negative; RBC,Urine 3 /HPF (0-4); Renal Epithelial Cells,Urine Occasional /HPF (<1); Squamous Epithelial Cell,Urine Occasional /HPF (0-10); Urine Color Straw (Yellow); Urine Specific Gravity 1.012 (1.001-1.035); Urine Urobilinogen < 2.0 EU/DL (0.2-1.0); WBC,Urine 39 /HPF (0-6)
[2020-01-01] MEDS: ALBUTEROL/IPRATROPIUM 3 ML NEB RESP TX SCH ×2 (23:45→23:50)
[2020-01-02 00:04] LABS: Barbiturates Screen,Urine Negative (Negative); Benzodiazepines Screen,Urine Negative (Negative); Cannabinoid Screen,Urine Negative (Negative); Opiate Screen,Urine Positive (Negative); Phencyclidine Screen,Urine Negative (Negative)
[2020-01-02] MEDS: ENOXAPARIN 60 MG/0.6 ML SYRINGE SUBCUT SCH ×3 (01:35→21:34)
[2020-01-02] MEDS: AZITHROMYCIN INJ 500 MG in SODIUM CHLORIDE 0.9% 250 ML IV SCH ×2 (01:57→22:13)
[2020-01-02] MEDS: ALBUTEROL/IPRATROPIUM 3 ML NEB RESP TX SCH ×5 (03:45→20:30)
[2020-01-02 04:30] LABS: Basophils % 0.5 % (0.0-0.8); Eosinophils % 0.3 % (0.00-10.9); Hemoglobin 13.3 GM/DL (14.0-18.0); Immature Granulocytes % 0.5 %; Immature Granulocytes Absolute 0.03 #; Lymphocytes # 0.5 10*3/uL (1.4-4.0); Lymphocytes % 7.6 % (21.2-54.2); Mean Corpuscular HGB Conc 30.9 GM/DL (32-36); Mean Corpuscular Volume 89.4 FL (87-102); Mean Platelet Volume 10.7 FL (9.6-12.0); Monocytes % 0.9 % (1.7-12.7); Neutrophils % 90.2 % (38.7-73.9); Platelet Count 224 T/CUMM (130-400); Red Blood Count 4.81 MC/CUMM (3.8-5.5); Red Cell Distribution Width 13.9 % (9.3-17.3); White Blood Count 6.3 T/CUMM (4-12)
[2020-01-02 04:56] LABS: Calcium 9.2 MG/DL (8.5-10.1); Osmolality,Calculated 280.7 MOS/KG (273-304)
[2020-01-02] MEDS: methylPREDNISolone SOD SUC 40 MG/1 ML VIAL IV SCH ×3 (05:12→21:31)
[2020-01-02] MEDS: ARFORMOTEROL 15 MCG/2 ML NEB RESP TX SCH ×2 (07:07→20:30)
[2020-01-02] MEDS: BUDESONIDE 0.5 MG/2 ML NEB RESP TX SCH ×2 (07:07→20:30)
[2020-01-02] MEDS: FOLIC ACID 1 MG TABLET PO SCH (08:27)
[2020-01-02] MEDS: MULTIVITAMIN (CENTRUM) TABLET PO SCH (08:27)
[2020-01-02] MEDS: PANTOPRAZOLE 40 MG TABLET PO SCH (08:28)
[2020-01-02] MEDS: chlordiazePOXIDE 10 MG CAPSULE PO SCH ×3 (08:28→21:34)
[2020-01-02] MEDS: THIAMINE 100 MG TABLET PO SCH (08:28)
[2020-01-02] MEDS ORDERED: POTASSIUM CHLORIDE 20 MEQ TABLET PO ONE (11:11)
[2020-01-02] MEDS ORDERED: METOPROLOL TARTRATE 25 MG TABLET PO SCH (11:30)
[2020-01-02] MEDS ORDERED: DILTIAZEM CD 180 MG CAPSULE PO SCH (11:30)
[2020-01-02 11:58] LABS: Troponin I < 0.015 NG/ML (0.00-0.045)
[2020-01-02] MEDS: DILTIAZEM CD 120 MG CAPSULE PO SCH (12:30)
[2020-01-02 14:35] LABS: Troponin I < 0.015 NG/ML (0.00-0.045)
[2020-01-03] MEDS: ALBUTEROL/IPRATROPIUM 3 ML NEB RESP TX SCH ×7 (00:35→22:37)
[2020-01-03 05:10] LABS: Basophils % 0.1 % (0.0-0.8); Hematocrit 37.3 VOL% (42.0-52.0); Hemoglobin 12.2 GM/DL (14.0-18.0); Immature Granulocytes % 0.4 %; Immature Granulocytes Absolute 0.06 #; Lymphocytes # 0.9 10*3/uL (1.4-4.0); Lymphocytes % 6.2 % (21.2-54.2); Mean Corpuscular HGB Conc 32.7 GM/DL (32-36); Mean Corpuscular Volume 86.7 FL (87-102); Mean Platelet Volume 11.3 FL (9.6-12.0); Monocytes % 1.8 % (1.7-12.7); Neutrophils % 91.5 % (38.7-73.9); Platelet Count 212 T/CUMM (130-400); Red Cell Distribution Width 13.7 % (9.3-17.3); White Blood Count 14.9 T/CUMM (4-12)
[2020-01-03] MEDS: methylPREDNISolone SOD SUC 40 MG/1 ML VIAL IV SCH ×3 (05:12→21:11)
[2020-01-03 05:54] LABS: Lymphocytes 4 % (20-55); Segmented Neutrophils 94 % (50-85); Total Cells Counted 100
[2020-01-03 05:55] LABS: Hypochromasia 1+; Microcytosis Slight; Platelet Estimate Normal
[2020-01-03 05:56] LABS: Risk Ratio 2.26; VLDL CHOLESTEROL 9.4 MG/DL
[2020-01-03 07:00] LABS: Calcium 9.1 MG/DL (8.5-10.1); Osmolality,Calculated 284.7 MOS/KG (273-304)
[2020-01-03] MEDS: BUDESONIDE 0.5 MG/2 ML NEB RESP TX SCH ×2 (07:32→19:58)
[2020-01-03] MEDS: ARFORMOTEROL 15 MCG/2 ML NEB RESP TX SCH ×2 (07:42→19:58)
[2020-01-03] MEDS: ASPIRIN EC 81 MG TABLET PO SCH (09:20)
[2020-01-03] MEDS: FOLIC ACID 1 MG TABLET PO SCH (09:20)
[2020-01-03] MEDS: MULTIVITAMIN (CENTRUM) TABLET PO SCH (09:20)
[2020-01-03] MEDS: chlordiazePOXIDE 10 MG CAPSULE PO SCH ×3 (09:20→21:11)
[2020-01-03] MEDS: THIAMINE 100 MG TABLET PO SCH (09:20)
[2020-01-03] MEDS: PANTOPRAZOLE 40 MG TABLET PO SCH (09:20)
[2020-01-03] MEDS: DILTIAZEM CD 120 MG CAPSULE PO SCH (09:20)
[2020-01-03] MEDS: ENOXAPARIN 60 MG/0.6 ML SYRINGE SUBCUT SCH ×2 (11:13→22:44)
[2020-01-03] MEDS: AZITHROMYCIN INJ 500 MG in SODIUM CHLORIDE 0.9% 250 ML IV SCH (22:44)
[2020-01-04] MEDS: ALBUTEROL/IPRATROPIUM 3 ML NEB RESP TX SCH ×2 (04:46→07:13)
[2020-01-04 05:29] LABS: Basophils % 0.1 % (0.0-0.8); Hematocrit 35.1 VOL% (42.0-52.0); Hemoglobin 11.3 GM/DL (14.0-18.0); Immature Granulocytes % 0.7 %; Lymphocytes # 0.6 10*3/uL (1.4-4.0); Lymphocytes % 4.1 % (21.2-54.2); Mean Corpuscular HGB Conc 32.2 GM/DL (32-36); Mean Corpuscular Volume 87.8 FL (87-102); Mean Platelet Volume 11.4 FL (9.6-12.0); Monocytes % 1.9 % (1.7-12.7); Neutrophils % 93.2 % (38.7-73.9); Platelet Count 199 T/CUMM (130-400); Red Cell Distribution Width 13.8 % (9.3-17.3); White Blood Count 14.9 T/CUMM (4-12)
[2020-01-04 05:42] LABS: Calcium 9.2 MG/DL (8.5-10.1); Osmolality,Calculated 283.8 MOS/KG (273-304)
[2020-01-04] MEDS: methylPREDNISolone SOD SUC 40 MG/1 ML VIAL IV SCH (06:04)
[2020-01-04 06:56] LABS: Hypochromasia 1+; Lymphocytes 2 % (20-55); Segmented Neutrophils 97 % (50-85); Total Cells Counted 100
[2020-01-04 06:57] LABS: Microcytosis Slight; Platelet Estimate Adequate
[2020-01-04] MEDS: BUDESONIDE 0.5 MG/2 ML NEB RESP TX SCH (07:13)
[2020-01-04] MEDS: ARFORMOTEROL 15 MCG/2 ML NEB RESP TX SCH (07:13)
[2020-01-04 07:49] VITALS: BP 113/78
[2020-01-04] MEDS: DILTIAZEM CD 120 MG CAPSULE PO SCH (08:21)
[2020-01-04] MEDS: THIAMINE 100 MG TABLET PO SCH (08:21)
[2020-01-04] MEDS: chlordiazePOXIDE 10 MG CAPSULE PO SCH (08:21)
[2020-01-04] MEDS: FOLIC ACID 1 MG TABLET PO SCH (08:21)
[2020-01-04] MEDS: PANTOPRAZOLE 40 MG TABLET PO SCH (08:21)
[2020-01-04] MEDS: ASPIRIN EC 81 MG TABLET PO SCH (08:21)
[2020-01-04] MEDS: MULTIVITAMIN (CENTRUM) TABLET PO SCH (08:21)
[2020-01-04] MEDS: ENOXAPARIN 60 MG/0.6 ML SYRINGE SUBCUT SCH (10:50)
== END 2020-01-04 11:24 | disposition home or self-care (01) | DRG 191 ==
LOC: N.ED 20:07 → N.EDINP 22:04 → SUATTDRO 22:04 → N.TELES 23:35 → N.TELEN 01-03 17:01
PROVIDERS: ADMIT Internal Medicine; ATTEND Family Medicine

== ENCOUNTER 2020-03-27 01:18 | Observation (INO) ==
[2020-03-27 02:00] LABS: Basophils # 0.1 10*3/uL (0.0-0.2); Eosinophils # 3.6 10*3/uL (0.0-0.87); Eosinophils % 45.5 % (0.00-10.9); Hematocrit 35.9 VOL% (42.0-52.0); Hemoglobin 11.5 GM/DL (14.0-18.0); Immature Granulocytes % 0.1 %; Immature Granulocytes Absolute 0.01 #; Lymphocytes # 1.9 10*3/uL (1.4-4.0); Mean Corpuscular Volume 87.8 FL (87-102); Mean Platelet Volume 10.7 FL (9.6-12.0); Neutrophils % 23.4 % (38.7-73.9); Platelet Count 201 T/CUMM (130-400); Red Blood Count 4.09 MC/CUMM (3.8-5.5); Red Cell Distribution Width 13.8 % (9.3-17.3); White Blood Count 7.8 T/CUMM (4-12)
[2020-03-27 02:12] LABS: PT Patient Result 10.9 SECS (9.8-11.9)
[2020-03-27 02:33] LABS: Bilirubin,Total 1.1 MG/DL (0.2-1.0); Calcium 8.9 MG/DL (8.5-10.1); Osmolality,Calculated 278.3 MOS/KG (273-304); Total Protein 6.8 G/DL (6.4-8.3)
[2020-03-27] MEDS ORDERED: ALBUTEROL/IPRATROPIUM 3 ML NEB RESP TX STA (02:49)
[2020-03-27] MEDS ORDERED: methylPREDNISolone SOD SUC 125 MG/2 ML VIAL IV STA (02:49)
[2020-03-27] MEDS ORDERED: LEVOFLOXACIN INJ 750 MG in PREMIX 1 EACH IV STA (03:21)
[2020-03-27] MEDS ORDERED: hydrALAZINE 20 MG/1 ML VIAL IV PRN (03:44)
[2020-03-27] MEDS ORDERED: ONDANSETRON 4 MG/2 ML VIAL IV PRN (03:44)
[2020-03-27] MEDS ORDERED: diphenhydrAMINE CAP 25 MG CAPSULE PO PRN (03:44)
[2020-03-27] MEDS ORDERED: DEXTROSE 50% 25 GM/50 ML VIAL IV PRN (03:44)
[2020-03-27] MEDS ORDERED: GLUCAGON 1 MG VIAL IM PRN (03:44)
[2020-03-27] MEDS ORDERED: ACETAMINOPHEN 325 MG TABLET PO PRN (03:44)
[2020-03-27] MEDS ORDERED: NICOTINE 21 MG/24 HR PATCH TRANSDERM PRN (03:44)
[2020-03-27] MEDS ORDERED: guaiFENesin/DM ER 600-30 MG TABLET PO PRN (03:44)
[2020-03-27 04:28] LABS: Atypical Lymphocytes Few; Eosinophils 46 % (0-10); Lymphocytes 20 % (20-55); Segmented Neutrophils 30 % (50-85); Total Cells Counted 100
[2020-03-27 04:29] LABS: Hypochromasia 1+; Platelet Estimate Normal
[2020-03-27 05:13] LABS: Ferritin 154.6 ng/ml (26-388)
[2020-03-27] MEDS ORDERED: SODIUM CHLORIDE 0.9% 500 ML IV ONE (05:44)
[2020-03-27] MEDS ORDERED: hydrALAZINE 20 MG/1 ML VIAL IV ONE (06:29)
[2020-03-27] MEDS: ALBUTEROL/IPRATROPIUM 3 ML NEB RESP TX SCH ×3 (07:15→19:39)
[2020-03-27 07:39] LABS: Apearance,Urine CLEAR (Clear); Bacteria,Urine Occasional /HPF (Few); Bilirubin,Urine Negative (Negative); Blood, Urine Negative (Negative); Glucose,Urine (UA) Negative (Negative); Ketones,Urine 20 mg/dL (Negative); Mucus,Urine Occasional /LPF (Occasional); Nitrite,Urine Negative (Negative); Protein,Urine Negative; RBC,Urine 4 /HPF (0-4); Squamous Epithelial Cell,Urine Occasional /HPF (0-10); Urine Color Yellow (Yellow); Urine Specific Gravity 1.018 (1.001-1.035); Urine Urobilinogen < 2.0 EU/DL (0.2-1.0); WBC,Urine 22 /HPF (0-6)
[2020-03-27] MEDS: ASPIRIN CHEW 81 MG TABLET PO SCH (09:29)
[2020-03-27] MEDS: LOSARTAN 50 MG TABLET PO SCH (09:29)
[2020-03-27] MEDS: APIXABAN 5 MG TABLET PO SCH ×2 (09:30→21:25)
[2020-03-27] MEDS: PANTOPRAZOLE 40 MG TABLET PO SCH (09:30)
[2020-03-27] MEDS: methylPREDNISolone SOD SUC 40 MG/1 ML VIAL IV SCH (14:14)
[2020-03-27] MEDS: DILTIAZEM CD 240 MG CAPSULE PO SCH (21:24)
[2020-03-28] MEDS: ALBUTEROL/IPRATROPIUM 3 ML NEB RESP TX SCH ×4 (00:13→19:43)
[2020-03-28] MEDS: methylPREDNISolone SOD SUC 40 MG/1 ML VIAL IV SCH ×2 (03:26→17:08)
[2020-03-28] MEDS: LEVOFLOXACIN INJ 750 MG in PREMIX 1 EACH IV SCH (03:27)
[2020-03-28] MEDS: PANTOPRAZOLE 40 MG TABLET PO SCH (09:50)
[2020-03-28] MEDS: LOSARTAN 50 MG TABLET PO SCH (09:51)
[2020-03-28] MEDS: APIXABAN 5 MG TABLET PO SCH ×2 (09:51→21:53)
[2020-03-28] MEDS: ASPIRIN CHEW 81 MG TABLET PO SCH (09:51)
[2020-03-28] MEDS ORDERED: POTASSIUM CHLORIDE 20 MEQ TABLET PO ONE (19:05)
[2020-03-28] MEDS: DILTIAZEM CD 240 MG CAPSULE PO SCH (21:53)
[2020-03-29] MEDS: ALBUTEROL/IPRATROPIUM 3 ML NEB RESP TX SCH ×3 (00:28→13:12)
[2020-03-29] MEDS: methylPREDNISolone SOD SUC 40 MG/1 ML VIAL IV SCH (04:30)
[2020-03-29] MEDS: LEVOFLOXACIN INJ 750 MG in PREMIX 1 EACH IV SCH (04:30)
[2020-03-29 05:44] LABS: Basophils % 0.1 % (0.0-0.8); Hemoglobin 11.2 GM/DL (14.0-18.0); Immature Granulocytes % 0.6 %; Immature Granulocytes Absolute 0.05 #; Lymphocytes # 1.1 10*3/uL (1.4-4.0); Lymphocytes % 12.1 % (21.2-54.2); Mean Corpuscular Volume 86.6 FL (87-102); Mean Platelet Volume 11.2 FL (9.6-12.0); Monocytes % 3.9 % (1.7-12.7); Neutrophils % 83.3 % (38.7-73.9); Platelet Count 195 T/CUMM (130-400); Red Blood Count 4.04 MC/CUMM (3.8-5.5); Red Cell Distribution Width 13.4 % (9.3-17.3); White Blood Count 8.7 T/CUMM (4-12)
[2020-03-29 06:01] LABS: Calcium 9.2 MG/DL (8.5-10.1); Osmolality,Calculated 277.8 MOS/KG (273-304)
[2020-03-29] MEDS: ASPIRIN CHEW 81 MG TABLET PO SCH (10:24)
[2020-03-29] MEDS: PANTOPRAZOLE 40 MG TABLET PO SCH (10:24)
[2020-03-29] MEDS: APIXABAN 5 MG TABLET PO SCH (10:24)
[2020-03-29] MEDS: LOSARTAN 50 MG TABLET PO SCH (10:24)
[2020-03-29 12:01] VITALS: BP 111/64
== END 2020-03-29 13:49 | disposition home or self-care (01) ==
LOC: N.ED 01:18 → N.EDINP 01:18 → N.TELES 05:41
PROVIDERS: ADMIT Hospitalist; ATTEND Hospitalist

== ENCOUNTER 2020-04-18 20:46 | Observation (INO) ==
[2020-04-18 21:20] LABS: Basophils % 0.5 % (0.0-0.8); Eosinophils # 2.1 10*3/uL (0.0-0.87); Eosinophils % 26.2 % (0.00-10.9); Hematocrit 37.5 VOL% (42.0-52.0); Immature Granulocytes % 0.2 %; Immature Granulocytes Absolute 0.02 #; Lymphocytes # 1.7 10*3/uL (1.4-4.0); Lymphocytes % 20.7 % (21.2-54.2); Mean Corpuscular Volume 89.7 FL (87-102); Mean Platelet Volume 9.8 FL (9.6-12.0); Neutrophils % 44.4 % (38.7-73.9); Platelet Count 230 T/CUMM (130-400); Red Blood Count 4.18 MC/CUMM (3.8-5.5); Red Cell Distribution Width 13.8 % (9.3-17.3)
[2020-04-18 21:26] LABS: Apearance,Urine CLEAR (Clear); Bilirubin,Urine Negative (Negative); Blood, Urine Small mg/dL (Negative); Glucose,Urine (UA) Negative (Negative); Ketones,Urine Negative (Negative); Nitrite,Urine Negative (Negative); Protein,Urine Negative; Squamous Epithelial Cell,Urine Occasional /HPF (0-10); Urine Color Straw (Yellow); Urine Specific Gravity 1.014 (1.001-1.035); Urine Urobilinogen < 2.0 EU/DL (0.2-1.0); WBC,Urine 49 /HPF (0-6)
[2020-04-18 21:33] LABS: Bilirubin,Total 0.6 MG/DL (0.2-1.0); Calcium 9.1 MG/DL (8.5-10.1); Osmolality,Calculated 278.4 MOS/KG (273-304); Total Protein 7.3 G/DL (6.4-8.3)
[2020-04-18 21:35] LABS: Troponin I < 0.015 NG/ML (0.00-0.045)
[2020-04-18] MEDS ORDERED: methylPREDNISolone SOD SUC 125 MG/2 ML VIAL IV STA (21:55)
[2020-04-18] MEDS ORDERED: ALBUTEROL/IPRATROPIUM 3 ML NEB RESP TX STA (21:55)
[2020-04-18] MEDS ORDERED: diphenhydrAMINE CAP 25 MG CAPSULE PO PRN (23:11)
[2020-04-18] MEDS ORDERED: ALUMINUM/MAGNES/SIMETH MAX STR 30 ML UDCUP PO PRN (23:11)
[2020-04-18] MEDS ORDERED: ACETAMINOPHEN 325 MG TABLET PO PRN (23:11)
[2020-04-18] MEDS ORDERED: DEXTROSE 50% 25 GM/50 ML VIAL IV PRN (23:11)
[2020-04-18] MEDS ORDERED: ONDANSETRON 4 MG/2 ML VIAL IV PRN (23:11)
[2020-04-18] MEDS ORDERED: hydrALAZINE 20 MG/1 ML VIAL IV PRN (23:11)
[2020-04-18] MEDS ORDERED: guaiFENesin/DM ER 600-30 MG TABLET PO PRN (23:11)
[2020-04-18] MEDS ORDERED: NICOTINE 21 MG/24 HR PATCH TRANSDERM PRN (23:11)
[2020-04-18] MEDS ORDERED: GLUCAGON 1 MG VIAL IM PRN (23:11)
[2020-04-19] MEDS: ALBUTEROL/IPRATROPIUM 3 ML NEB RESP TX SCH ×4 (00:27→19:48)
[2020-04-19] MEDS: cefTRIAXone 1,000 MG in SODIUM CHLORIDE 0.9% 100 ML IV SCH ×2 (00:30→21:32)
[2020-04-19 01:11] LABS: Eosinophils 20 % (0-10); Lymphocytes 16 % (20-55); Segmented Neutrophils 56 % (50-85); Total Cells Counted 100
[2020-04-19 01:12] LABS: Anisocytosis 1+; Platelet Estimate Normal
[2020-04-19] MEDS ORDERED: ALBUTEROL INHALER 18 GM INH PRN (01:21)
[2020-04-19] MEDS: PANTOPRAZOLE 40 MG TABLET PO SCH (09:22)
[2020-04-19] MEDS: ASPIRIN CHEW 81 MG TABLET PO SCH (09:22)
[2020-04-19] MEDS: APIXABAN 5 MG TABLET PO SCH ×2 (09:22→21:32)
[2020-04-19] MEDS: LOSARTAN 50 MG TABLET PO SCH (09:22)
[2020-04-19] MEDS: methylPREDNISolone SOD SUC 40 MG/1 ML VIAL IV SCH ×2 (09:23→21:32)
[2020-04-19] MEDS ORDERED: DILTIAZEM CD 240 MG CAPSULE PO SCH (21:00)
[2020-04-19] MEDS: BUDESONIDE/FORMOTEROL 160-4.5 INHALER 6 GM INH SCH (21:32)
[2020-04-20] MEDS: ALBUTEROL/IPRATROPIUM 3 ML NEB RESP TX SCH ×3 (02:10→13:41)
[2020-04-20 06:02] LABS: Basophils % 0.1 % (0.0-0.8); Hematocrit 35.4 VOL% (42.0-52.0); Hemoglobin 11.5 GM/DL (14.0-18.0); Immature Granulocytes % 0.4 %; Immature Granulocytes Absolute 0.06 #; Lymphocytes # 0.7 10*3/uL (1.4-4.0); Lymphocytes % 5.1 % (21.2-54.2); Mean Corpuscular HGB Conc 32.5 GM/DL (32-36); Mean Corpuscular Volume 87.4 FL (87-102); Monocytes % 1.8 % (1.7-12.7); Neutrophils % 92.6 % (38.7-73.9); Platelet Count 239 T/CUMM (130-400); Red Blood Count 4.05 MC/CUMM (3.8-5.5); Red Cell Distribution Width 13.5 % (9.3-17.3)
[2020-04-20 06:28] LABS: Albumin 3.4 G/DL (3.4-5.0); Bilirubin,Total 0.4 MG/DL (0.2-1.0); Calcium 9.2 MG/DL (8.5-10.1); Total Protein 6.8 G/DL (6.4-8.3)
[2020-04-20 06:30] LABS: Hypochromasia 1+; Lymphocytes 5 % (20-55); Platelet Estimate Adequate; Segmented Neutrophils 93 % (50-85); Total Cells Counted 100
[2020-04-20 07:54] VITALS: BP 135/55
[2020-04-20] MEDS: methylPREDNISolone SOD SUC 40 MG/1 ML VIAL IV SCH (08:57)
[2020-04-20] MEDS: PANTOPRAZOLE 40 MG TABLET PO SCH (08:58)
[2020-04-20] MEDS: APIXABAN 5 MG TABLET PO SCH (08:58)
[2020-04-20] MEDS: LOSARTAN 50 MG TABLET PO SCH (08:58)
[2020-04-20] MEDS: ASPIRIN CHEW 81 MG TABLET PO SCH (08:58)
[2020-04-20] MEDS: BUDESONIDE/FORMOTEROL 160-4.5 INHALER 6 GM INH SCH (09:00)
[2020-04-20] MEDS ORDERED: TUBERCULIN SKIN TEST 0.1 ML SYRINGE INTRADERM ONE (11:00)
== END 2020-04-20 14:00 | disposition home or self-care (01) ==
LOC: EDUNIT# → EDSEX → EDBD → N.ED 20:46 → N.EDINP 20:46 → N.2E 04-19 01:14
PROVIDERS: ADMIT Hospitalist; ATTEND Hospitalist